=== PATIENT | female | born 1980 | race Caucasian/White ===

== ENCOUNTER 2020-04-17 04:51 | Day surgery (SDC) | payer BC, OTHER ==
[2020-04-16 16:00] VITALS: BMI 29.2
[2020-04-17 11:40] VITALS: TEMP 97.9
[2020-04-17 11:58] VITALS: BP 107/69; PULSE 77
== END 2020-04-17 12:05 | disposition home or self-care (01) ==
LOC: JASU-ENDO 04:51
PROVIDERS: ATTEND Internal Medicine Gastroenterology
PROC: 0DB78ZX Excision of Stomach, Pylorus, Via Natural or Artificial Opening Endoscopic, Diagnostic (ICD-10-PCS; 2020-04-17)
PROC: 0DB98ZX Excision of Duodenum, Via Natural or Artificial Opening Endoscopic, Diagnostic (ICD-10-PCS; principal; 2020-04-17 10:30)
DX: K29.80 Duodenitis without bleeding (principal); K29.50 Unspecified chronic gastritis without bleeding; K30 Functional dyspepsia
CPT/HCPCS: 81025; 88305-TC; 88342-TC

== ENCOUNTER 2020-05-04 14:22 | Emergency (ER) | payer BC ==
[2020-05-04 14:35] VITALS: BP 130/84; TEMP 99.2; BMI 29.2
[2020-05-04] MEDS ORDERED: SODIUM CHLORIDE 1,000 ML IV STA (14:45)
[2020-05-04] MEDS ORDERED: KETOROLAC TROMETHAMINE 30 MG/1 ML VIAL IM ONE (14:59)
[2020-05-04] MEDS ORDERED: ONDANSETRON 4 MG/2 ML VIAL IVPUSH ONE (15:04)
[2020-05-04 15:16] LABS: BASO % 0.6 % (0-2.0); EOS % 1.8 % (0-4.5); HEMATOCRIT 39.1 % (32.4-45.2); HEMOGLOBIN 13.1 GM/dL (10.7-15.3); LYMPH % 22.5 % (8-40); MCHC 33.4 g/dl (32.0-36.0); MEAN CELL VOLUME 92.8 fl (80-96); MONO % 7.5 % (3.8-10.2); NEUT % 67.6 % (42.8-82.8); PLATELET COUNT 191 K/MM3 (134-434); RBC 4.21 M/mm3 (3.60-5.2); RDW 13.6 % (11.6-15.6); WHITE BLOOD COUNT 5.8 K/mm3 (4.0-10.0)
[2020-05-04 15:17] LABS: URINE APPEARANCE CLEAR; URINE BILIRUBIN NEGATIVE (NEGATIVE); URINE COLOR YELLOW; URINE GLUCOSE (UA) NEGATIVE (NEGATIVE); URINE KETONE NEGATIVE (NEGATIVE); URINE LEUK ESTERASE NEGATIVE (NEGATIVE); URINE NITRITE NEGATIVE (NEGATIVE); URINE PROTEIN NEGATIVE (NEGATIVE); URINE UROBILINOGEN 0.2 mg/dL (0.2-1.0)
[2020-05-04 15:19] LABS: HCG,QUALITATIVE URINE Negative
[2020-05-04 15:35] LABS: POTASSIUM 3.8 mmol/L (3.5-5.1)
[2020-05-04 15:37] LABS: ALBUMIN 4.8 g/dl (3.4-5.0); CALCIUM 9.6 mg/dL (8.5-10.1)
[2020-05-04 15:38] LABS: BLOOD UREA NITROGEN 12.2 mg/dL (7-18)
[2020-05-04 15:41] LABS: CREATININE 0.9 mg/dL (0.55-1.3)
[2020-05-04 15:42] LABS: BILIRUBIN,TOTAL 2.5 mg/dL (0.2-1); TOT PROT 8.2 g/dl (6.4-8.2)
[2020-05-04] MEDS ORDERED: KETOROLAC TROMETHAMINE 30 MG/1 ML VIAL ONE (16:42)
[2020-05-04] MEDS ORDERED: ONDANSETRON 4 MG/2 ML VIAL ONE (16:42)
[2020-05-04 17:01] VITALS: PULSE 72
== END 2020-05-04 17:01 | disposition home or self-care (01) ==
LOC: JER 14:22
PROC: 3E0337Z Introduction of Electrolytic and Water Balance Substance into Peripheral Vein, Percutaneous Approach (ICD-10-PCS; principal; 2020-05-04)
PROC: 3E033GC Introduction of Other Therapeutic Substance into Peripheral Vein, Percutaneous Approach (ICD-10-PCS; principal; 2020-05-04)
PROC: 3E023GC Introduction of Other Therapeutic Substance into Muscle, Percutaneous Approach (ICD-10-PCS; principal; 2020-05-04)
DX: D25.9 Leiomyoma of uterus, unspecified (principal); N84.0 Polyp of corpus uteri
CPT/HCPCS: 36415; 76830-TC; 76856-TC; 80053; 81003; 84703; 85025; 87086; 87491; 87591; 99284-25; C9803; U0003

== ENCOUNTER 2024-09-08 15:38 | Emergency (ER) | payer OTHER ==
[2024-09-08 15:49] VITALS: RESP 18; BMI 21.4
[2024-09-08 16:45] LABS: ABSOLUTE IMMATURE GRANULOCYTES 0.02 x10^3/uL (0.0-0.031); BASOPHILS # 0.06 x10^3/uL (0.01-0.08); EOSINOPHIL % 0.7 % (0.7-5.8); EOSINOPHILS # 0.04 x10^3/uL (0.04-0.36); MCHC 32.0 g/dl (32.2-35.5); MEAN CELL VOLUME 93.9 fl (79.4-94.8); MEAN PLT VOLUME 10.5 fl (9.4-12.3); MONOCYTE # 0.27 x10^3/uL (0.24-0.86); MONOCYTE % 4.5 % (4.7-12.5); RDW 13.2 % (12.2-17.1)
[2024-09-08] MEDS: SODIUM CHLORIDE 0.9% 500 ML INFUS.BAG IV ONE (16:51)
[2024-09-08 17:14] LABS: CO2 25.0 mmol/L (21-32); GLUCOSE,RANDOM 104.0 mg/dL (74-106)
[2024-09-08 17:18] LABS: CREATININE 0.8 mg/dL (0.55-1.3); SGOT/AST 25.0 U/L (15-37); SGPT/ALT 26.0 U/L (13-61); TOT PROT 7.4 g/dl (6.4-8.2)
[2024-09-08 17:20] LABS: ALK PHOS 37.0 U/L (45-117)
[2024-09-08 19:18] VITALS: BP 124/80; PULSE 88; TEMP 98.5
== END 2024-09-08 19:18 | disposition home or self-care (01) ==
LOC: JER 15:38
DX: R00.2 Palpitations (principal); R42 Dizziness and giddiness; R11.0 Nausea; F43.9 Reaction to severe stress, unspecified
CPT/HCPCS: 36415; 71046-TC-FY; 80053; 84484; 84703; 85025; 93005; 93010; 99285-25